=== PATIENT | female | born 1970 | race Two or more races ===

== ENCOUNTER 2020-12-24 07:24 | Day surgery (SDC) | payer BC ==
[~2020-12-24] VITALS: Ht 157.5 cm; Wt 55.3 kg
[~2020-12-24 07:24] MED LIST: ATOR10TA PO; DULA1INJ SC; EMPA1TAB3 PO; HYDR12.56 PO; LOSA25TA38 PO; METF-371 PO
[2020-12-24] MEDS ORDERED: ceFAZolin 1GM/50ML 100 ML IV ONE (07:33)
[2020-12-24] MEDS ORDERED: BUPIVACAINE 0.5% MPF INJ 30ML SDV IJ ONE (08:20)
[2020-12-24] MEDS ORDERED: MIDAZOLAM HCL 2MG/2ML 2ml VIAL (1mg/ml) ONE (08:30)
[2020-12-24] MEDS ORDERED: fentaNYL CITRATE 5 ML ONE (08:30)
[2020-12-24] MEDS ORDERED: ROCURONIUM 10MG/ML 10ML VIAL IV ONE (08:31)
[2020-12-24] MEDS ORDERED: LIDOCAINE 2% (LOCAL ANESTH.) PF 5ml SDV ONE (08:36)
[2020-12-24] MEDS ORDERED: ONDANSETRON HCL 4 MG/2 ML VIAL ONE (08:36)
[2020-12-24] MEDS ORDERED: PROPOFOL 10 MG/ML 20 ML IV ONE (08:37)
[2020-12-24] MEDS ORDERED: BUPIVACAINE HCL 50 ML ONE (08:42)
[2020-12-24] MEDS ORDERED: GLYCOPYRROLATE 0.2 MG/ML 1ML VIAL ONE (09:51)
[2020-12-24] MEDS ORDERED: NEOSTIGMINE 1 MG/ML INJ (10mg/10ML VIAL) ONE (09:51)
[2020-12-24] MEDS ORDERED: ONDANSETRON HCL 4 MG/2 ML VIAL IV PRN (10:00)
[2020-12-24 11:00] VITALS: BP 127/82
== END 2020-12-24 11:05 | disposition home or self-care (01) ==
LOC: SUR 07:24
PROVIDERS: ATTEND Orthopaedic Surgery Sports Medicine
DX: M25.562 Pain in left knee (principal); M94.262 Chondromalacia, left knee; G89.29 Other chronic pain; I10 Essential (primary) hypertension; E78.5 Hyperlipidemia, unspecified; E11.9 Type 2 diabetes mellitus without complications; M19.90 Unspecified osteoarthritis, unspecified site; Z88.8 Allergy status to other drugs, medicaments and biological substances; Z20.822 Contact with and (suspected) exposure to COVID-19; Z90.710 Acquired absence of both cervix and uterus; Z79.899 Other long term (current) drug therapy
CPT/HCPCS: 29882; 82962; C1713; J0690; J2001; J2250; J2405; J2704; J3010; J3490; U0003